=== PATIENT | female | born 1995 | race Two or more races ===

== ENCOUNTER 2019-01-06 14:35 | Emergency (ER) | payer SELFPAY ==
--- NOTE | 2019-01-06 15:22 | EDM.PDOC ---
ED HPI GENERAL MEDICAL PROBLEM - General Chief Complaint: Genitourinary Problem Stated Complaint: POSS UTI, BACK PAIN AND FREQUENT URINATION Time Seen by Provider: 01/06/19 15:10 Source of Information: Reports: Patient, RN Notes Reviewed History Limitations: Reports: No Limitations - History of Present Illness INITIAL COMMENTS - FREE TEXT/NARRATIVE: Patient is a 23-year-old female who presents to the ED for evaluation of possible UTI. Patient notes she started developing symptoms about 1-1/2 weeks ago, she tried some [id number] Azo for initial symptom relief and it seemed to help a little bit, but has not taken away the symptoms completely. She is complaining of dysuria, urinary frequency and urinary urgency. Patient denies any fevers or chills, nausea/vomiting/diarrhea. Back Pain Score (Numeric/FACES): 5 - Related Data Allergies Allergy/AdvReac Type Severity Reaction Status Date / Time No Known Allergies Allergy Verified 01/06/19 15:11 Home Meds: Home Meds ARIPiprazole [Abilify] 5 mg PO DAILY PRN 01/06/19 [History] cephALEXin [Cephalexin] 500 mg PO BID #10 capsule 01/06/19 [Rx] lamoTRIgine 25 mg PO BID 01/06/19 [History] Past Medical History Psychiatric History: Reports: Anxiety - Past Surgical History Other Musculoskeletal Surgeries/Procedures:: foot surgery Social & Family History - Tobacco Use Smoking Status *Q: Never Smoker - Caffeine Use Caffeine Use: Reports: Coffee, Energy Drinks - Recreational Drug Use Recreational Drug Use: No ED ROS GENERAL - Review of Systems Review Of Systems: See Below Constitutional: Denies: Fever, Chills HEENT: Reports: No Symptoms Respiratory: Reports: No Symptoms Cardiovascular: Reports: No Symptoms Endocrine: Reports: No Symptoms GI/Abdominal: Reports: No Symptoms : Reports: Dysuria, Frequency, Urgency. Denies: Discharge, Flank Pain Musculoskeletal: Reports: Back Pain (lower back discomfort) Skin: Reports: No Symptoms Neurological: Reports: No Symptoms Psychiatric: Reports: No Symptoms Hematologic/Lymphatic: Reports: No Symptoms Immunologic: Reports: No Symptoms ED EXAM, RENAL/ - Physical Exam Exam: See Below Exam Limited By: No Limitations General Appearance: Alert, WD/WN, No Apparent Distress Respiratory/Chest: No Respiratory Distress, Lungs Clear, Normal Breath Sounds, No Accessory Muscle Use, Chest Non-Tender Cardiovascular: Normal Peripheral Pulses, Regular Rate, Rhythm, No Murmur GI/Abdominal: Normal Bowel Sounds, Soft, Non-Tender, No Distention, No Mass (Female) Exam: Deferred Extremities: Normal Inspection, Normal Capillary Refill Neurological: Alert, Oriented, Normal Cognition, No Motor/Sensory Deficits Psychiatric: Normal Affect, Normal Mood Skin Exam: Warm, Dry, Intact, Normal Color, No Rash Course - Vital Signs Last Recorded V/S: Last Vital Signs Temp 98.6 F 01/06/19 15:06 Pulse 63 01/06/19 15:06 Resp 16 01/06/19 15:06 BP 108/63 01/06/19 15:06 Pulse Ox 99 01/06/19 15:06 - Orders/Labs/Meds Labs: Laboratory Tests 01/06/19 Range/Units 15:13 Urine Color Yellow (Yellow) Urine Appearance Cloudy H (Clear) Urine pH 7.0 (5.0-8.0) Ur Specific [place] 1.020 (1.005-1.030) Urine Protein Trace H (Negative) Urine Glucose (UA) Negative (Negative) Urine Ketones Negative (Negative) Urine Occult Blood Trace-intact H (Negative) Urine Nitrite Negative (Negative) Urine Bilirubin Negative (Negative) Urine Urobilinogen 0.2 (0.2-1.0) Ur Leukocyte Esterase 3+ H (Negative) Urine RBC 5-10 H (0-5) /hpf Urine WBC 75-100 H (0-5) /hpf Ur Squamous Epith Cells 5-10 H (0-5) /hpf Urine Bacteria Moderate H (FEW) /hpf Urine Mucus Few (FEW) /hpf - Re-Assessments/Exams Free Text/Narrative Re-Assessment/Exam: 01/06/19 15:49 Patient presents to the ED for evaluation of a possible urinary tract infection. Urinalysis was strongly suggestive of a UTI, the nitrite was negative, there was a trace of blood, 3+ leukocyte esterase, 75-100/hpf white blood cells. Due to the patient's clinical symptoms, I did place her on Keflex 500 mg twice a day for 5 days. Urine culture was also sent. Departure - Departure Time of Disposition: 15:34 Disposition: Home, Self-Care 01 Condition: Fair Clinical Impression: UTI (urinary tract infection) Qualifiers: Urinary tract infection type: acute cystitis Hematuria presence: without hematuria Qualified Code(s): N30.00 - Acute cystitis without hematuria - Discharge Information *PRESCRIPTION DRUG MONITORING PROGRAM REVIEWED*: No *COPY OF PRESCRIPTION DRUG MONITORING REPORT IN PATIENT JANINE: No Prescriptions: cephALEXin [Cephalexin] 500 mg PO BID #10 capsule Instructions: Urinary Tract Infection, Adult, [id number] Referrals: PCP,None [Primary Care Provider] - Forms: ED Department Discharge Additional Instructions: You have been evaluated in the ED for your urinary symptoms. Your urinalysis was consistent with an acute urinary tract infection. Your urine was sent for culture, and you will be notified if you should need a change in your antibiotic. You may take AZO for urinary pain relief. This is available over the counter, and can be attained at any retail store like [employer] or any pharmacy. Please be aware that this medication will make your urine turn orange. You have been given a prescription for Cephalexin, 500 mg 1 tablet 2 times a day for 5 days. This has been electronically sent to the [place] pharmacy located in the [facility] grocery store. Please increase your oral fluid intake and try to stay adequately hydrated. Please return to the ED if your symptoms change or worsen.
== END 2019-01-06 16:11 | disposition home or self-care (01) ==
LOC: JD.ED 14:35
DX: N30.00 Acute cystitis without hematuria (principal)
CPT/HCPCS: 81001; 87086; 87088; 99283

== ENCOUNTER 2019-04-25 13:41 | Emergency (ER) | payer OTHER ==
--- NOTE | 2019-04-25 15:50 | EDM.PDOC ---
ED HPI GENERAL MEDICAL PROBLEM - General Chief Complaint: Behavioral/Psych Stated Complaint: DEPRESSION Time Seen by Provider: 04/25/19 15:06 Source of Information: Reports: Patient, RN Notes Reviewed History Limitations: Reports: No Limitations - History of Present Illness INITIAL COMMENTS - FREE TEXT/NARRATIVE: Patient is a 24-year-old female who presents to the ED for evaluation of ongoing depression. Patient states this is been worse for the last 1-1/2 weeks. , She does have a history of bipolar and PTSD. She takes lamotrigine 25 mg twice daily for medical management, and was on Abilify as well, but states she has not been taking this for around 1 month. Her psychiatrist at [facility] told her to take the Abilify only at night, and to use this for sleep. Patient states that when she was on Abilify and lamotrigine it seemed to help provide relief from her depression. Patient is somewhat tearful at initial exam, she is not having any thoughts of suicide, nor does she have a suicidal plan. She notes that she does have a lot of life stressors going on, dealing with her boyfriend and family. She states she does not have a counselor that she talks to about her feelings. - Related Data Allergies Allergy/AdvReac Type Severity Reaction Status Date / Time No Known Allergies Allergy Verified 04/25/19 14:04 Home Meds: Home Meds lamoTRIgine 25 mg PO BID 01/06/19 [History] Past Medical History Psychiatric History: Reports: Anxiety, Bipolar, Depression - Past Surgical History Other Musculoskeletal Surgeries/Procedures:: foot surgery Social & Family History - Tobacco Use Smoking Status *Q: Never Smoker - Caffeine Use Caffeine Use: Reports: Coffee, Energy Drinks - Recreational Drug Use Recreational Drug Use: No ED ROS GENERAL - Review of Systems Review Of Systems: See Below Constitutional: Denies: Fever, Chills Respiratory: Denies: Shortness of Breath Cardiovascular: Denies: Chest Pain GI/Abdominal: Denies: Abdominal Pain, Nausea, Vomiting Psychiatric: Reports: Depression. Denies: Hallucinations, Homicidal Ideation, Suicidal Ideation ED EXAM, GENERAL - Physical Exam Exam: See Below Exam Limited By: No Limitations General Appearance: Alert, WD/WN, No Apparent Distress Eye Exam: Bilateral Eye: EOMI, Normal Inspection, PERRL Ears: Normal External Exam Throat/Mouth: Normal Inspection Head: Atraumatic, Normocephalic Neck: Normal Inspection Respiratory/Chest: No Respiratory Distress, Lungs Clear, Normal Breath Sounds, No Accessory Muscle Use, Chest Non-Tender Cardiovascular: Normal Peripheral Pulses, Regular Rate, Rhythm, No Murmur Peripheral Pulses: 3+: Radial (L), Radial (R) GI/Abdominal: Normal Bowel Sounds, Soft, Non-Tender, No Distention, No Mass Extremities: Normal Inspection, Normal Capillary Refill Neurological: Alert, Oriented, Normal Cognition, No Motor/Sensory Deficits Psychiatric: Normal Affect, Depressed Mood Skin Exam: Warm, Dry, Intact, Normal Color, No Rash Course - Vital Signs Last Recorded V/S: Last Vital Signs Temp 99.0 F 04/25/19 14:05 Pulse 80 04/25/19 14:05 Resp BP 129/86 04/25/19 14:05 Pulse Ox 95 04/25/19 14:05 - Orders/Labs/Meds Labs: Laboratory Tests 04/25/19 Range/Units 14:30 Urine HCG, Qual Negative (NEGATIVE) - Re-Assessments/Exams Free Text/Narrative Re-Assessment/Exam: 04/25/19 15:51 Patient presents to the ED for increased depressive thoughts. Upon speaking with the patient, she is taking the Abilify only sporadically at night for sleep , and is not taking it on a routine basis. I did call Dr. Maldonado and discussed the case with him, and he states that she did have good mood control while taking the lamotrigine and the Abilify, that she should take the Abilify on a daily basis. If it is too sedating she may take it at night, if it gives her insomnia, then she can take it during the day. I will discuss this with the patient and likely discharge her home with general recommendations. Departure - Departure Time of Disposition: 15:52 Disposition: Home, Self-Care 01 Condition: Fair Clinical Impression: Depressive disorder - Discharge Information *PRESCRIPTION DRUG MONITORING PROGRAM REVIEWED*: No *COPY OF PRESCRIPTION DRUG MONITORING REPORT IN PATIENT JANINE: No Instructions: Living With Depression Referrals: PCP,None [Primary Care Provider] - Forms: ED Department Discharge Additional Instructions: You were evaluated in the ER today regarding your depression. I was able to discuss your case with our on-call psychiatrist, and he recommends taking the Abilify on a daily basis to see if this does not help improve your moods. If this medicine makes you feel too tired, you may take it on a nightly schedule, if it gives you insomnia, you may take it during the day. As you may well know, these medications can take up to 4 to 6 weeks to provide you with some benefit of your symptoms. He recommends close follow-up with your psychiatrist for a possible dosing increase on the lamotrigine, or you may follow-up with our psychiatrist, Dr. Maldonado for a second opinion if you should feel obliged. Please call [phone] to set up care with Dr. Maldonado through his tele-psych clinic. He would be more than glad to evaluate you and give you a second. On med management. Please return to the ER at any time if your symptoms change or worsen. Sepsis Event Note - Evaluation Sepsis Screening Result: No Definite Risk - Focused Exam Vital Signs: Vital Signs Temp Pulse BP Pulse Ox 04/25/19 14:05 99.0 F 80 129/86 95 Date Exam was Performed: 04/25/19 Time Exam was Performed: 15:59
== END 2019-04-25 16:12 | disposition home or self-care (01) ==
LOC: JD.ED 13:41
DX: F32.9 Major depressive disorder, single episode, unspecified (principal); Z79.899 Other long term (current) drug therapy
CPT/HCPCS: 81025; 99283; 99284